=== PATIENT | male | born 1955 | race African-American/Black ===

== ENCOUNTER 2019-05-22 05:45 | Day surgery (SDC) | payer OTHER ==
[~2019-05-22] VITALS: Ht 177.8 cm; Wt 77.8 kg
[~2019-05-22 05:45] MED LIST: ASPI-903 PO; ATOR40TA68 PO; EMTR1TAB17 PO; HYDR25TA6 PO; LANT3I SC; TRIVICAY
[2019-05-22 07:05] VITALS: Ht 177.8 cm; Wt 77.8 kg
[2019-05-22 07:30] VITALS: BP 157/86; PULSE 64; RESP 15
--- NOTE | 2019-05-22 07:30 | PREAC ---
Date/Time of Note Date/Time of Note DATE: 05/22/19 TIME: 07:29 Anesthesia Eval and Record Evaluation Time Pre-Procedure Interview DATE: 05/22/19 TIME: 07:29 Age 64 Sex male NPO: 8 hrs Preoperative diagnosis screening Planned procedure colonoscopy Past Medical History Past Medical History: Includes Cardio: HTN, Dyslipidemia Endo: Diabetes Musculoskeletal: Osteoarthritis Hepatic: Hepatitis GI: GERD Heme: Anemia Infection(s): HIV, Hep C Surgery & Anesthesia Issues No known issue Meds Anticoagulation: No Beta Adán within 24 hr: No Reason Beta Adán not given: Pt. not on B-Adán Reported Medications [Trivicay] No Conflict Check 05/22/19 Emtricitab/Rilpiviri/Tenof Ala (Odefsey Tablet) 1 Each Tablet, 1 EACH PO, TAB 05/22/19 Insulin Glargine* (Lantus*) 100 Unit/Ml Soln, 54 UNIT SC DAILY, #1 VIAL 05/22/19 Hydrochlorothiazide* (Hydrochlorothiazide*) 25 Mg Tab, 25 MG PO DAILY, #30 TAB 05/22/19 Atorvastatin* (Atorvastatin*) 40 Mg Tablet, 40 MG PO QHS, #30 TAB 05/22/19 Aspirin* (Aspirin* Chew) 81 Mg Tab.chew, 81 MG PO DAILY, TAB.CHEW 05/22/19 Meds reviewed: Yes Allergies Coded Allergies: No Known Drug Allergies (Verified Allergy, Unknown, 05/22/19) Allergies Reviewed: Yes Labs/Studies Labs Reviewed: Reviewed by anesthesiologist test: N/A Pre-procedure Exam Airway: Adequate mouth opening, Adequate thyromental dist Mallampati: Mallampati II Teeth: Normal Lung: Normal Heart: Normal ASA Physical Status ASA physical status: 3 Emergency: None Planned Anesthetic General/MAC: Mask, MAC Pre-operative Attestations Prior to commencing anesthesia and surgery, the patient was re-evaluated, there was verification of: *The patient's identity *The results of appropriate recent lab work and preoperative vital signs *The above evaluation not changing prior to induction *Anesthetic plan, risk benefits, alternative and complications discussed with patient/family; questions answered; patient/family understands, accepts and wishes to proceed. YARIEL CARNEY May 22, 2019 07:30
[2019-05-22] MEDS ORDERED: LIDOCAINE 100 MG SYRINGE ONE (07:36)
[2019-05-22] MEDS ORDERED: PROPOFOL 200 MG INJ ONE (07:36)
[2019-05-22] MEDS ORDERED: GLYCOPYRROLATE 0.4 MG INJ ONE (07:36)
[2019-05-22] MEDS ORDERED: PROPOFOL 60 ML ONE (07:36)
[2019-05-22 08:29] VITALS: BP 133/89; RESP 20
--- NOTE | 2019-05-23 07:27 | PAC ---
Date/Time of Note Date/Time of Note DATE: 05/23/19 TIME: 07:27 Post-Anesthesia Notes Post-Anesthesia Note Last documented vital signs Vital Signs Date Temp Pulse Resp B/P (MAP) Pulse Ox O2 O2 Flow FiO2 Time Delivery Rate 05/22/19 20 133/89 99 08:29 (104) 05/22/19 97.3 64 Room Air 07:30 Activity: WNL Respiratory function: WNL Cardiovascular function: WNL Mental status: Baseline Pain reasonably controlled: Yes Hydration appropriate: Yes Nausea/Vomiting absent: Yes YARIEL CARNEY May 23, 2019 07:27
== END 2019-05-22 10:43 | disposition home or self-care (01) ==
LOC: GIL 05:45
PROVIDERS: ATTEND Internal Medicine Gastroenterology
DX: Z12.11 Encounter for screening for malignant neoplasm of colon (principal); D12.6 Benign neoplasm of colon, unspecified; K64.4 Residual hemorrhoidal skin tags; K64.8 Other hemorrhoids; E11.9 Type 2 diabetes mellitus without complications; I10 Essential (primary) hypertension; Z79.82 Long term (current) use of aspirin; Z79.84 Long term (current) use of oral hypoglycemic drugs
CPT/HCPCS: 45380; 82962; 88305; J2001; Z7610